=== PATIENT | male | born 2000 | race Caucasian/White ===

== ENCOUNTER 2020-01-26 00:20 | Emergency (ER) | payer OTHER ==
[~2020-01-26] VITALS: Ht 167.6 cm; Wt 64.9 kg
[2020-01-26] MEDS ORDERED: HYDROXYZIN10 MG/5 ML (00:39)
[2020-01-26] MEDS ORDERED: OXCARBAZEPINE300 MG (00:39)
== END 2020-01-26 04:06 | disposition home or self-care (01) ==
LOC: ER 00:20 → EMR PED 00:20 → ER 01:24
DX: G40.802 Other epilepsy, not intractable, without status epilepticus (principal)

== ENCOUNTER 2020-07-12 12:39 | Emergency (ER) | payer OTHER ==
[~2020-07-12] VITALS: Ht 167.6 cm; Wt 68.9 kg
[~2020-07-12 12:39] MED LIST: HYDROXYZIN10 MG/5 ML; OXCARBAZEPINE300 MG
[2020-07-12] MEDS ORDERED: KEFLEX500 MG PO (15:55)
[2020-07-12] MEDS ORDERED: MUPIROCIN1 G1 TOP (15:55)
== END 2020-07-12 16:06 | disposition home or self-care (01) ==
LOC: ER 12:39 → EMR PED 12:47
DX: L01.09 Other impetigo (principal); R23.8 Other skin changes; F84.0 Autistic disorder; F41.8 Other specified anxiety disorders; Z03.818 Encounter for observation for suspected exposure to other biological agents ruled out

== ENCOUNTER 2021-05-23 14:05 | Emergency (ER) | payer OTHER ==
[~2021-05-23] VITALS: Ht 165.1 cm; Wt 69.9 kg
[~2021-05-23 14:05] MED LIST changes: +KEFLEX500 MG PO; +MUPIROCIN1 G1 TOP
== END 2021-05-23 18:27 | disposition home or self-care (01) ==
LOC: ER 14:05
DX: R42 Dizziness and giddiness (principal); G40.89 Other seizures

== ENCOUNTER → 2022-03-04 | Emergency (ER) | payer OTHER ==
[~2022-03-04] VITALS: Ht 167.6 cm; Wt 72.1 kg
[~2022-03-04] MED LIST changes: +BENADRYL25 MG PO; +MEDROL8 MG PO; +TRILEPTAL600 MG
== END | disposition home or self-care (01) ==
LOC: ER 03:52
DX: T78.40XA Allergy, unspecified, initial encounter (principal)

== ENCOUNTER 2022-09-12 22:04 | Emergency (ER) | payer OTHER ==
[~2022-09-12] VITALS: Ht 165.1 cm; Wt 68.0 kg
== END 2022-09-13 00:04 | disposition home or self-care (01) ==
LOC: ER 22:04
DX: R56.9 Unspecified convulsions (principal); F84.0 Autistic disorder